=== PATIENT | male | born 1985 | race Caucasian/White ===

== ENCOUNTER 2021-03-25 17:29 | Inpatient (IN) | payer OTHER ==
[~2021-03-25] VITALS: Ht 175.3 cm; Wt 138.3 kg
[2021-03-25 18:26] LABS: BASOPHILS ABSOLUTE AUTO 0.01 K/mm3 (0.00-0.23); BASOPHILS PERCENT AUTO 0 % (0-2); EOSINOPHILS PERCENT AUTO 0 % (0-6); Hematocrit 41.7 % (37.0-53.0); Hemoglobin 14.6 g/dL (13.5-17.5); IMMATURE GRAN ABSOLUTE AUTO 0.01 K/mm3 (0.00-0.10); IMMATURE GRAN PERCENT AUTO 0 % (0-1); LYMPHOCYTES ABSOLUTE AUTO 0.74 K/mm3 (0.84-5.20); LYMPHOCYTES PERCENT AUTO 21 % (21-46); MONOCYTES ABSOLUTE AUTO 0.24 K/mm3 (0.16-1.47); MONOCYTES PERCENT AUTO 7 % (4-13); Mean Corpuscular HGB 27.8 pg (26.0-34.0); Mean Corpuscular Volume 79 fL (80-100); Mean Platelet Volume 9.4 fL (9.1-12.4); NEUTROPHILS ABSOLUTE AUTO 2.51 K/mm3 (1.96-9.15); NEUTROPHILS PERCENT AUTO 72 % (41-73); Platelet Count 167 K/mm3 (150-400); RDW Coefficient Variation 12.4 % (11.7-14.2); RDW Standard Deviation 35.6 fL (35.1-46.3); Red Blood Cell Count 5.25 M/mm3 (4.30-5.90); White Blood Cell Count 3.51 K/mm3 (4.00-11.30)
[2021-03-25 18:54] LABS: Alanine Aminotransfer (ALT/SGP 41 U/L (12-78); Albumin, Blood 3.3 g/dL (3.4-5.0); Albumin/Globulin Ratio 0.9 (0.8-1.8); Alk Phos 63 U/L (50-136); Anion Gap 7 mmol/L (6-16); Aspartate Aminotrans (AST/SGOT 49 U/L (12-37); Bilirubin, Total 0.3 mg/dL (0.1-1.0); Blood Urea Nitrogen 11 mg/dL (8-24); Bun/Creatinine Ratio 11.7 (12.0-20.0); CO2, Blood 24 mmol/L (21-32); Chloride, Blood 102 mmol/L (98-108); Creatinine, Blood 0.94 mg/dL (0.60-1.20); Globulin, Blood 3.8 g/dL (2.2-4.0); Glomerular Filtration Rate >60 (60-); Glucose, Blood 105 mg/dL (70-99); Potassium, Blood 3.6 mmol/L (3.5-5.5); Sodium, Blood 133 mmol/L (136-145); Total Protein, Blood 7.1 g/dL (6.4-8.2); Troponin I <0.015 ng/mL (0.000-0.040)
--- NOTE | 2021-03-25 22:39 | NUR ---
transfer report from Paula GARBER RN on 35 tyear old Male being admitted with covid 19 & possible pneumonia. Had Fever 103.6 & hypoxia. In to ER via EMS. Will be in Special droplet contact isolation for Covid 19. Reportedly has recieved IVF , Steroid, & getting remdesiver, tylenol also given. Await admission
[2021-03-26 05:16] LABS: BASOPHILS PERCENT AUTO 0 % (0-2); EOSINOPHILS PERCENT AUTO 0 % (0-6); Hematocrit 41.4 % (37.0-53.0); Hemoglobin 14.4 g/dL (13.5-17.5); IMMATURE GRAN ABSOLUTE AUTO 0.01 K/mm3 (0.00-0.10); IMMATURE GRAN PERCENT AUTO 0 % (0-1); LYMPHOCYTES ABSOLUTE AUTO 0.69 K/mm3 (0.84-5.20); LYMPHOCYTES PERCENT AUTO 25 % (21-46); MONOCYTES PERCENT AUTO 4 % (4-13); Mean Corpuscular HGB 28.2 pg (26.0-34.0); Mean Corpuscular HGB Conc 34.8 g/dL (31.5-36.5); Mean Corpuscular Volume 81 fL (80-100); Mean Platelet Volume 9.3 fL (9.1-12.4); NEUTROPHILS ABSOLUTE AUTO 2.01 K/mm3 (1.96-9.15); NEUTROPHILS PERCENT AUTO 71 % (41-73); Platelet Count 166 K/mm3 (150-400); RDW Coefficient Variation 12.5 % (11.7-14.2); RDW Standard Deviation 37.1 fL (35.1-46.3); Red Blood Cell Count 5.11 M/mm3 (4.30-5.90); White Blood Cell Count 2.81 K/mm3 (4.00-11.30)
--- NOTE | 2021-03-26 05:25 | NUR ---
35 year old MAle admitted with covid 19 hypoxia & fevers. PT started on oxygen & given steroids in ER, remdesiver. He has low grade fever this AM. PT says & Mother have covid 19. Mom in PCU with bilat covid pneumonia.
[2021-03-26 05:43] LABS: Anion Gap 7 mmol/L (6-16); Blood Urea Nitrogen 11 mg/dL (8-24); Bun/Creatinine Ratio 12.3 (12.0-20.0); CO2, Blood 23 mmol/L (21-32); Chloride, Blood 103 mmol/L (98-108); Glomerular Filtration Rate >60 (60-); Glucose, Blood 143 mg/dL (70-99); Potassium, Blood 3.8 mmol/L (3.5-5.5); Sodium, Blood 133 mmol/L (136-145)
--- NOTE | 2021-03-26 17:10 | NUR ---
SHIFT SUMMARY PT IS AOX4 AND PLEASANT. PT DENIES PAIN, N/V. PT TRANSITIONED TO 6 L O2 VIA NC DUE TO SOB AND LOW SATURATIONS. SATS CURRENTLY GREATER THAN 90% ON 6 L O2. PT IS INDEPENDENT IN ROOM. PT TELE REMAINS SINUS TACH 106. PT APPETITE IS MODERATE. PLAN IS TO MONITOR O2 STATUS. PT PRONES SELF AFTER DIRECTION FROM THIS RN. PT HAS NOT HAD VISITORS PER COVID POLICY. PT REMAINS IN ENHANCED ISOLATION PRECUATIONS T/O SHIFT. THIS RN SPOKE TO PT'S FATHER WHO WAS VISITING STAFF FOR AND UPDATE DOWN IN PCU,THEN CAME FOR AN UPDATE ON THIS UNIT. PT IS IN BED, CALL LIGHT IN REACH, BED IN LOW POSITION. THIS RN WILL CONTINUE TO MONITOR PT STATUS.
--- NOTE | 2021-03-27 04:55 | NUR ---
SHIFT SUMMARY: PT IS ALERT AND ORIENTED. PT IS CALM AND COOPERATIVE WITH CARE. PT CALLS APPROPRIATELY. PT IS INDEPENDENT IN THE ROOM. PT REQUIRED A SLIGHT INCREASE IN O2 OVERNIGHT FROM 6 TO 8 L TO KEEP SATS > 90%. PT DENIES PAIN, NAUSEA, AND VOMITING. PT SLEPT MUCH OF THE NIGHT WHEN NOT DISTURBED. BED IN LOW POSITION, CALL LIGHT WITHIN REACH. WILL CONTINUE TO MONITOR.
--- NOTE | 2021-03-27 15:53 | NUR ---
ALERT. ORIENTED. PATIENT WILL DESAT TO HIGH 80'S WITH MOVEMENT. DISCUSS PRONING. OXYGEN INCREASED TO 9LPM HIGH FLOW . MAX SAT HAS BEEN 95%. INDEPENDENT IN ROOM. ABLE TO MAKE NEEDS KNOWN. TLEL ON. WCTM
[2021-03-28 05:37] LABS: Anion Gap 7 mmol/L (6-16); Blood Urea Nitrogen 16 mg/dL (8-24); Bun/Creatinine Ratio 16.4 (12.0-20.0); CO2, Blood 30 mmol/L (21-32); Calcium, Blood 8.4 mg/dL (8.5-10.1); Chloride, Blood 101 mmol/L (98-108); Creatinine, Blood 0.98 mg/dL (0.60-1.20); Glomerular Filtration Rate >60 (60-); Glucose, Blood 126 mg/dL (70-99); Potassium, Blood 3.6 mmol/L (3.5-5.5); Sodium, Blood 138 mmol/L (136-145)
--- NOTE | 2021-03-28 05:46 | NUR ---
SHIFT SUMMARY: PT IS ALERT AND ORIENTED. PT IS CALM AND COOPERATIVE WITH CARE. PT CALLS APPROPRIATELY. PT IS INDEPENDENT IN THE ROOM. PT REMAINS SOB WITH EXERTION, O2 DEMANDS THE SAME BETWEEN 7 AN 9 LITERS, OCCASIONAL COUGH. PT DENIES PAIN, NAUSEA, AND VOMITING. PT SLEPT MUCH OF THE NIGHT WHEN NOT DISTURBED. NO ACUTE CHANGES OR COMPLICATION THIS SHIFT. BED IN LOW POSITION, CALL LIGHT WITHIN REACH. WILL CONTINUE TO MONITOR.
--- NOTE | 2021-03-28 08:38 | NUR ---
Bumpted oxygen up to 10 liters per min. Pt saturating around 88% now: 86% prior to turning up O2. Pt states he has moderate shortness of breath and has a non-productive cough. Requesting cough medicaton. Will give meds per EMAR.
--- NOTE | 2021-03-28 18:11 | NUR ---
Pt still on 9-10 liters today. Attempt made to decrease O2 to 8 and pt did not tolerate. On 8 liters, pt sats were down to 83-85%. Pt desaturates when eating and with activity. Low 90s sats otherwise today. Moderate shortness of breath. Pt reports he is very uncomfortable being sick.
--- NOTE | 2021-03-28 23:58 | NUR ---
PT CONT'S TO DESAT DESPITE O2 TITRATION UP TO 13L HIGH FLOW O2. HE ADMITS TO NOT TOLERATING THE COOL AIR VIA HIS NARES ANYMORE AND IT FEELING "LIKE SHATTERED GLASS". LUBRICANT PROVIDED TO NARES AND HE REPORTED SOME RELIEF BUT HE WAS ALSO INSTRUCTED TO WEAR O2 IN MOUTH PRN UNTIL AIRVO/HUMIDIFIED HIGH FLOW O2 ORDER IS OBTAINED. ALERTED AND AIRVO ORDER PLACED. RT AWARE, SPO2 86-92% AT THIS TIME. COUGH MEDICINE PROVIDED WELL PER PT REQUEST.
--- NOTE | 2021-03-29 00:30 | NUR ---
SPO2>90% ON AIRVO: 60L O2 AT 90%. CONT BIOX INTACT AND PT REPORTS IMPROVED RESPIRATIONS AND COMFORT.
--- NOTE | 2021-03-29 05:10 | NUR ---
SUMMARY: PT A/OX4, INDEPENDENT AND IS PLEASANT AND COOPERATIVE W/CARE. PT SWITCHED TO AIRVO: 60L O2/90% D/T NO LONGER TOLERATING NASAL PAIN/PRESSURE FROM HIGH FLOW O2. PREVIOUSLY HE'D REQUIRED TITRATION UP TO 13L HIGH FLOW O2 TO MAINTAIN SPO2>88%. HE IS TOLERATING AIRVO W/MASK BETTER AND REPORTS IMPROVED COMFORT. HE CONT'S TO HAVE SOB W/EXERTION AND DESATS TO LOW 80'S% TO TOILET, TAKING SEVERAL MINUTES TO FULLY RECOVER. COUGH MEDICINE RECIEVED PER PT REQUEST PER EMAR FOR TOLERABLE RELIEF OF MOIST, NAGGING RESOURCING CONSULTANT COUGH. PT DISCOURAGED BY BEING SICK AND ADMITS TO FEELING "2 STEPS FORWARD 1 STEP BACK", REASSURANCE PROVIDED. HE'S NSR/S.TACH ON TELEMETRY, HR 80'S-100'S BPM. HE'S SLEPT INTERMITTENTLY AND DENIED COMPLAINTS OTHER THAN RESPIRATORY ISSUES. NO ACUTE CHANGES, VSS/AFEBRILE. WCTM AND REPORT TO DAY RN.
[2021-03-29 05:30] LABS: Anion Gap 6 mmol/L (6-16); Blood Urea Nitrogen 17 mg/dL (8-24); Bun/Creatinine Ratio 19.4 (12.0-20.0); CO2, Blood 30 mmol/L (21-32); Calcium, Blood 8.5 mg/dL (8.5-10.1); Chloride, Blood 101 mmol/L (98-108); Creatinine, Blood 0.88 mg/dL (0.60-1.20); Glomerular Filtration Rate >60 (60-); Glucose, Blood 131 mg/dL (70-99); Potassium, Blood 3.4 mmol/L (3.5-5.5); Sodium, Blood 137 mmol/L (136-145)
--- NOTE | 2021-03-29 11:01 | NUR ---
Patient seems to be worsening. He has been placed on AIRVO overnight. Spoke to Dr. Sheikh. Pt likely to be moved to PCU due to increased oxygen demands.
--- NOTE | 2021-03-30 03:05 | NUR ---
35 year old PT [employer] with Covid 19 & multiple family menbers with covid 19 including . PT's Mother was in PCU & changed to comfort measures. PT is hypoxic with airvo 60 l via Mask to keep sats greater than 90%. called concerned for increased oxygen requirements. PT was admitted on 2 to 3 l nc. She says same thing happened to PT's Mother who opted to remove oxygen & go to comfort measures. Support offered to PT & Spouse.
[2021-03-30 05:21] LABS: Anion Gap 7 mmol/L (6-16); Blood Urea Nitrogen 18 mg/dL (8-24); Bun/Creatinine Ratio 21.3 (12.0-20.0); CO2, Blood 30 mmol/L (21-32); Calcium, Blood 8.3 mg/dL (8.5-10.1); Chloride, Blood 100 mmol/L (98-108); Creatinine, Blood 0.85 mg/dL (0.60-1.20); Glomerular Filtration Rate >60 (60-); Glucose, Blood 129 mg/dL (70-99); Potassium, Blood 3.5 mmol/L (3.5-5.5); Sodium, Blood 137 mmol/L (136-145)
--- NOTE | 2021-03-30 11:57 | NUR ---
After hearing from the on-call playroom attendant, Shahriar, that the patient's mother, Jennifer, this morning, I visit the patient. Patient is lying in bed and alert. Patient explains how he believes the family was infected with the COVID virus. He talks about how close his family is and how important it is for him to recover quickly so they can be together and encourage one another. Patient has mixed feelings about yarsani these days and mostly gains inspiration by carefully thought through choices and the love of family. I reinforce helpful attitudes and practices, normalize his experience and provide therapeutic listening, grief support and prayer. Patient responds well and shows signs of being comforted. I will continue to remain available to patient and family.
--- NOTE | 2021-03-30 17:00 | NUR ---
SHIFT SUMMARY NO ACUTE CHANGES T/O SHIFT, A&Ox4, CALM AND COOPERATIVE c CARE, INDEPENDENT IN ROOM. PT REPORTS THAT HIS BREATHING FEELS THE SAME YESTERDAY, NOT WORSE NOR BETTER. REMAINS ON 60 L/MIN VIA AIRVO TO KEEP SATS ABOVE 88%. PT QUICKLY DROPS INTO THE 70'S W/O AIRVO. PT STILL HAS A NONPRODUCTIVE COUGH, MEDS GIVEN PER EMAR AND REQUEST. DECENT ORAL AND FLUID INTAKE T/O SHIFT. PT HAD VISIT FROM [facility] THIS AFTERNOON REGARDING THE RECENT PASSING OF HIS MOTHER. PT IS CURRENTLY RESTING IN BED c CALL LIGHT WITHIN REACH.
--- NOTE | 2021-03-30 23:51 | NUR ---
SPOKE WITH pt'S MARY AND UPDATED ON CONTINUED HIGH FLOW OXYGEN VIA AIRVO FOR COVID 19 HYPOXIA. PT's Mother today from covid 19 bilat pneumonia resp failure on comfort measures per her request. Support offered for loss & hope for recovery. PT given IS flutter, instructed in cough deep breath. Continues on wireless bioxx with sats low 90's on 60 l oxygen via airvo with other vss. Encouraged oral fluids.
[2021-03-31 12:38] LABS: Hemoglobin 15.6 g/dL (13.5-17.5); Mean Corpuscular HGB 27.9 pg (26.0-34.0); Mean Corpuscular HGB Conc 34.7 g/dL (31.5-36.5); Mean Corpuscular Volume 80 fL (80-100); Mean Platelet Volume 9.1 fL (9.1-12.4); Platelet Count 442 K/mm3 (150-400); RDW Standard Deviation 34.8 fL (35.1-46.3); White Blood Cell Count 12.05 K/mm3 (4.00-11.30)
[2021-03-31 13:19] LABS: Anion Gap 10 mmol/L (6-16); Blood Urea Nitrogen 21 mg/dL (8-24); Bun/Creatinine Ratio 23.9 (12.0-20.0); CO2, Blood 27 mmol/L (21-32); Calcium, Blood 8.5 mg/dL (8.5-10.1); Chloride, Blood 99 mmol/L (98-108); Creatinine, Blood 0.88 mg/dL (0.60-1.20); Glomerular Filtration Rate >60 (60-); Glucose, Blood 112 mg/dL (70-99); Potassium, Blood 3.3 mmol/L (3.5-5.5); Sodium, Blood 136 mmol/L (136-145)
--- NOTE | 2021-03-31 16:49 | NUR ---
SHIFT SUMMARY TOLERATING WEANING OF FIO2. CURRENTLY ON 70% 60L AIRVO (START OF SHIFT= 90% 60L). DECLINED PRN COUGH SYRUP/THROAT LOZENGE/PAIN RELIEF. ENCOURAGED OUT OF BED TO CHAIR, DECLINED. USING IS/FLUTTER INDEPENDENTLY. POOR ORAL INTAKE AT MEALS, FAIR WATER INTAKE.
--- NOTE | 2021-04-01 07:06 | NUR ---
35 YEAR OLD maLE WITH COVID 19 PNEUMONIA CONTINUES WITH 60 L OXYGEN AT 70% PER AIRVO. hE CONTINUES WITH INTERMITTNT DESATS TO 84 % AT RESTBUT REBOUNDS QUICKLY. fLAT AFFECT, GRIEF OVER LOSS OF MOTHER TO COVID 19 SEVERAL DAYS AGO.
--- NOTE | 2021-04-02 05:00 | NUR ---
FOOD AND BEVERAGE ANALYST SUMMARY PT A/O X4, INDEPENDENT IN ROOM. DENIES PAIN, NAUSEA. DENIES SOB AT REST. CONTINUES TO BE ON 60L AIRVO WITH 70% FIO2 SATTING IN THE LOW 90'S. WOULD OCCASIONALLY DIP DOWN TO 88% BUT REBOUNDS QUICK BACK UP TO THE LOW 90'S. ABLE TO MAKE NEEDS KNOWN. NO ACUTE CHANGES. CALL LIGHT WITHIN REACH, WILL CONTINUE TO MONTIOR.
--- NOTE | 2021-04-02 16:37 | NUR ---
SHIFT SUMMARY PT IS A&O, PLEASANT AND CO-OP. REMAINS ON 60L AIRVO W/70% FiO2, PER REPORT, THAT IS SAME YESTERDAY. PT IS INDEPENDENT IN RM AND TO BTHRM. NO C/O, DENIES NEEDS, DENIES SOB. CALL LT IN REACH, ABLE TO MAKE NEEDS KNOWN.
--- NOTE | 2021-04-03 04:05 | NUR ---
POACHER OPERATOR SUMMARY PT A/O X4, INDEPENDENT IN ROOM. REMAINS ON THE SAME ON 60L O2 WITH DECREASED NEEDS OF FIO2 OF 60 NOW COMPARED TO 70 FIO2. PT HAS BEEN SATTING IN THE LOW 90'S. PT DENIES SOB. DENIES PAIN, NAUSEA, DIZZINESS. CALL LIGHT WITHIN REACH , WILL CONTINUE TO MONITOR.
--- NOTE | 2021-04-03 17:36 | NUR ---
SHIFT SUMMARY NO ACUTE CHANGES TO PRESENT THIS SHIFT. O2 DECREASED THIS AM AND AGAIN THIS AFTERNOON. PER RT REPORT, PT ABLE TO USE INS TO 2000 W/O COUGHING. PT ENCOURAGED TO GET UP AND MOVE AROUND IN RM, NOT JUST LIE IN BED. LUNGS T/O IMPROVED TODAY; FINE CRACKLES UPPER AND LOWER L LOBES. ONLY SCATTERED FINE CRACKLES IN R LOBES. PT DENIED FURTHER NEEDS. CALL LT IN REACH.
--- NOTE | 2021-04-04 04:44 | NUR ---
ANCHOR TACK PULLER SUMMARY PT HAS BEEN ON ROOM AIR THROUGH THE NIGHT. SATS LOW 90'S WHILE AT REST BUT DOES DESAT DOWN SLIGHTLY TO 87-89 AT TIMES WHEN OUT OF BED. PT STATES HE FEELS MUCH IMPROVED AND IS VERY DETERMINED TO WEAN HIMSELF OFF OF OXYGEN. HAS RESTED MOST OF THE NIGHT WITH NO COMPLAINTS. VSS, WILL CONTINUE TO MONITOR.
[2021-04-04] MEDS ORDERED: DEXA6 PO (11:02)
[2021-04-04] MEDS ORDERED: VITAMIN D5000 UNIT PO (11:03)
--- NOTE | 2021-04-04 12:48 | NUR ---
NURSE HOME O2 EVAL PATIENT ON ROOM AIR AT REST WAS 93%. PATIENT ON ROOM AIR WITH ACTIVITY WAS 85%. PATIENT ON 3L WITH ACTIVTY WAS 91-92%.
--- NOTE | 2021-04-04 15:04 | NUR ---
DISCHARGE HOME O2 EVAL COMPLETED. OXYGEN RECOMMENDED. DISCHARGE INSTRUCTIONS EXPLAINED TO PATIENT. PATIENT STATED UNDERSTANDING. TRANSPORT OXYGEN DROPPED OFF BY [facility]. IV REMOVED WITHOUT DIFFICULTY. PATIENT REFUSED TO WEAR OXYGEN WHILE BEING TRANSPORTED TO PRIVATE VEHICLE. PATIENT REFUSED TO BE TRANSPORTED VIA WHEELCHAIR TO PRIVATE VEHICLE. PATIENT WANTED TO WALK. PATIENT REFUSED TO TAKE DISCHARGE PACKET WITH HIM. BELONGINGS SENT WITH PATIENT.
== END 2021-04-04 14:53 | disposition home or self-care (01) | DRG 871 ==
LOC: ER 17:29 → MEDS 22:46
PROVIDERS: Family Medicine; Internal Medicine; Physician Assistant; ADMIT Internal Medicine
PROC: 8E0ZXY6 Isolation (ICD-10-PCS; principal; 2021-03-25)
PROC: XW033E5 Introduction of Remdesivir Anti-infective into Peripheral Vein, Percutaneous Approach, New Technology Group 5 (ICD-10-PCS; 2021-03-25)
PROC: 3E0333Z Introduction of Anti-inflammatory into Peripheral Vein, Percutaneous Approach (ICD-10-PCS; 2021-03-25)
DX: A41.9 Sepsis, unspecified organism (principal); U07.1 COVID-19; J12.82 Pneumonia due to coronavirus disease 2019; J96.01 Acute respiratory failure with hypoxia; R65.20 Severe sepsis without septic shock; F43.21 Adjustment disorder with depressed mood; E87.6 Hypokalemia; Z91.048 Other nonmedicinal substance allergy status
CPT/HCPCS: 36415; 71045; 80048; 80053; 82947; 84132; 84145; 84484; 85025; 85027; 93005; 93010; 94640; 94762; 96365; 96375; 99285-25; A9270; J1100; J1650; J1940; J7030; J7050